=== PATIENT | female | born 1970 | race Caucasian/White ===

== ENCOUNTER 2020-04-15 20:52 | Emergency (ER) | payer MEDICAID, OTHER, SELFPAY ==
[~2020-04-15] VITALS: Ht 170.2 cm; Wt 86.7 kg
--- NOTE | 2020-04-15 21:09 | NUR ---
PATIENT WALKED BACK FROM TRIAGE WITH CHIEF C/O COUGH AND LOSS OF VOICE. PER PATIENT SHE WAS SEEN AT URGENT CARE TODAY AND DIAGNOSED WITH RIGHT LUNG PNA. PER PATIENT SHE HAS BEEN COUGHING, AND ALMOST "FELL OUT OF SHOWER TODAY." PATIENT STATES SHE LOST VOICE AROUND THANKSGIVING AND HAS BEEN COUGHING X1.5 WEEKS. PATIENT DENIES N/V/D, DENIES FEVER. NADN, VSS, CALL LIGHT WITHIN REACH, SIDE RAILS UP X2.
[2020-04-15] MEDS ORDERED: SODIUM CHLORIDE 0.9% 1,000ML IVBOLUS ONE (21:30)
--- NOTE | 2020-04-15 21:30 | NUR ---
20 GAUGE IV STARTED RIGHT WRIST, ONE SET OF BLOOD CULTURES COLLECTED.
--- NOTE | 2020-04-15 21:54 | NUR ---
EEG TECHNOLOGIST AT BEDSIDE.
--- NOTE | 2020-04-15 22:06 | NUR ---
ERMD AT BEDSIDE TO DISCUSS POC.
[2020-04-15 22:17] LABS: BASOPHILS % (AUTO) 1 % (0-1); EOSINOPHILS % (AUTO) 3 % (1-7); LYMPHOCYTES % (AUTO) 35 % (22-44); MEAN CORPUSCULAR HEMOGLOBIN 30.8 pg (27.0-34.8); MEAN CORPUSCULAR HGB CONC 34.3 g/dL (32.4-35.8); MEAN PLATELET VOLUME 7.9 fL (7.4-10.4); MONOCYTES % (AUTO) 7 % (2-9); NEUTROPHILS % (AUTO) 55 % (42-75); PLATELET COUNT 479 x10^3/uL (130-400); RED BLOOD COUNT 4.03 x10^6/uL (3.82-5.3); RED CELL DISTRIBUTION WIDTH 13.5 % (9.6-15.2)
[2020-04-15] MEDS ORDERED: ALBUTEROL/IPRATROPIUM 2.5MG/0.5MG, 3 ML ONE (22:19)
[2020-04-15] MEDS ORDERED: methylPREDNISolone SOD SUCC 125 MG/2 ML ONE (22:19)
--- NOTE | 2020-04-15 22:23 | NUR ---
SPOKE WITH LAB, DIC AND CHEMSITRY PANEL NEED TO BE REDRAWN, SAMPLE HEMOLYZED.
[2020-04-15 22:28] LABS: MD NO
[2020-04-15] MEDS ORDERED: ALBUTEROL/IPRATROPIUM 2.5MG/0.5MG, 3 ML NPPB ONE (22:30)
[2020-04-15] MEDS ORDERED: methylPREDNISolone SOD SUCC 125 MG/2 ML IV ONE (22:30)
--- NOTE | 2020-04-15 22:42 | NUR ---
MINIATURE MODEL MAKER AT BEDSIDE FOR REDRAW.
--- NOTE | 2020-04-15 22:44 | NUR ---
PATIENT FINISHED BREATHING TREATMENT, TOLERATED WELL, NADN, VSS, DAUGHTER AT BEDSIDE, CALL LIGHT WITHIN REACH.
[2020-04-15 23:10] LABS: ALBUMIN 3.1 g/dL (3.4-5.0); ANION GAP 5 mmol/L (5-15); CALCIUM 8.6 mg/dL (8.5-10.1); CHLORIDE 110 mmol/L (98-107)
[2020-04-15 23:12] VITALS: BP 100/55
[2020-04-15 23:19] LABS: ALANINE AMINOTRANSFERASE 23 U/L (12-78); ALKALINE PHOSPHATASE 98 U/L (45-117); BILIRUBIN,TOTAL 0.3 mg/dL (0.2-1.0); CREATININE 0.78 mg/dL (0.55-1.02); TOTAL PROTEIN 6.9 g/dL (6.4-8.2)
[2020-04-15 23:34] LABS: D-DIMER (DIC) 0.87 ug/mlFEU (0.00-0.52)
--- NOTE | 2020-04-15 23:42 | NUR ---
Patient given discharge instructions and prescriptions and they have confirmed that they understand the instructions. Patient stable and ambulatory with steady gait from ED with daughter.
== END 2020-04-15 23:43 | disposition home or self-care (01) ==
LOC: ED 23:04
DX: U07.1 COVID-19 (principal); J15.9 Unspecified bacterial pneumonia; B34.9 Viral infection, unspecified; J06.9 Acute upper respiratory infection, unspecified; F17.210 Nicotine dependence, cigarettes, uncomplicated; Z90.710 Acquired absence of both cervix and uterus
CPT/HCPCS: 36415; 71045; 80053; 82728; 83605; 83615; 84145; 85025; 85049; 85379; 85384; 85610; 85730; 86140; 87040; 94640; 96361; 96374; 99284; 99406; J2930; J7030